=== PATIENT | female | born 1975 | race Caucasian/White ===

== ENCOUNTER 2018-03-31 11:40 | Observation (INO) | payer OTHER ==
[2018-03-31] MEDS ORDERED: ACETAMINOPHEN 500 MG TAB PO ONE (11:51)
[2018-03-31] MEDS ORDERED: ceFAZolin 2 GM/DEXTROSE 100 ML IV ONE (11:51)
[2018-03-31] MEDS ORDERED: GABAPENTIN 300 MG CAP PO ONE (11:51)
[2018-03-31] MEDS ORDERED: PHENAZOPYRIDINE HCL 200 MG TAB PO ONE (11:51)
[2018-03-31] MEDS ORDERED: LIDOCAINE 1% 2 ML INJ ID PRN (11:52)
[2018-03-31] MEDS ORDERED: LR 1,000 ML IV ONE (11:52)
[2018-03-31] MEDS ORDERED: SCOPOLAMINE HYDROBROMIDE 1 MG/3 DAYS PATCH TD ONE (12:54)
[2018-03-31] MEDS ORDERED: MIDAZOLAM 2 MG/2 ML VIAL IVP ONE (12:54)
--- NOTE | 2018-03-31 13:15 | PDHPUP ---
History & Physical Update H&P update statement: This history and physical update is based on an assessment of the patient which was completed after admission or registration (within 24 hours), but prior to the surgery/procedure. H&P update: H&P reviewed & patient examined, no change in patient's condition since H&P completed
[2018-03-31] MEDS ORDERED: BUPIVACAINE/EPI 0.5% 30 ML SDV ONE (13:36)
[2018-03-31] MEDS ORDERED: PROPOFOL 200 MG/20 ML VIAL ONE (13:45)
[2018-03-31] MEDS ORDERED: fentaNYL 100 MCG/2 ML INJ ONE ×2 (13:45→16:15)
[2018-03-31] MEDS ORDERED: DEXAMETHASONE 4 MG/ML VIAL ONE (13:46)
[2018-03-31] MEDS ORDERED: ROCURONIUM 50 MG/5 ML VIAL ONE (13:46)
[2018-03-31] MEDS ORDERED: METOCLOPRAMIDE 10 MG/2 ML VIAL ONE (13:47)
--- NOTE | 2018-03-31 13:50 | PDANEPAE ---
ANE Past Medical History - Cardiovascular History Hx Hypertension: No Hx Arrhythmias: No Hx Chest Pain: No Hx Coronary Artery / Peripheral Vascular Disease: No Hx CHF / Valvular Disease: No Hx Palpitations: No - Pulmonary History Hx COPD: No Hx Asthma/Reactive Airway Disease: Yes Hx Recent Upper Respiratory Infection: No Hx Oxygen in Use at Home: No Hx Sleep Apnea: No Sleep Apnea Screening Result - Last Documented: Negative Pulmonary History Comment: enviromental allergens triggers asthma - Neurologic History Hx Cerebrovascular Accident: No Hx Seizures: No Hx Dementia: No - Endocrine History Hx Diabetes: No - Renal History Hx Renal Disorders: No - Liver History Hx Hepatic Disorders: No - Neurological & Psychiatric Hx Hx Neurological and Psychiatric Disorders: Yes Neurological / Psychiatric History Comment: depression/anxiety - Cancer History Hx Cancer: No - Congenital Disorder History Hx Congenital Disorders: Yes Congenital History Comment: anemia - GI History Hx Gastrointestinal Disorders: Yes Gastrointestinal History Comment: acid reflux. dairy/gluten causes bloating, gas cramping and abd pain - Other Health History Other Health History: ? anemia. endometiosis - Chronic Pain History Chronic Pain: Yes (pelvic, lower back) - Surgical History Prior Surgeries: 2018 lap ablation. cholecycectomy ANE Review of Systems Review of Systems: - Exercise capacity METS (RN): 4 METS ANE Patient History - Allergies Allergies/Adverse Reactions: gluten Allergy (Verified 03/31/18 12:26) Other-Enter Comments Milk Containing Products [dairy] Allergy (Verified 03/31/18 12:26) Other-Enter Comments NSAIDS (Non-Steroidal Anti-Inflamma Allergy (Verified 03/31/18 12:26) Hives Penicillins Allergy (Verified 03/31/18 12:26) Itching - Home Medications Home Medications: Cyclobenzaprine 03/24/18 [Last Taken 03/28/18] Naproxen 03/24/18 [Last Taken 03/17/18] Bcp 03/31/18 [Last Taken 03/30/18] - NPO status NPO Since - Liquids (Date): 03/31/18 NPO Since - Liquids (Time): 11:15 NPO Since - Solids (Date): 03/31/18 NPO Since - Solids (Time): 05:45 - Smoking Hx Smoking Status: Former smoker - Family Anes Hx Family Hx Anesthesia Complications: mom has similar issues ANE Labs/Vital Signs - Vital Signs Blood Pressure: 123/70 Heart Rate: 82 Respiratory Rate: 16 O2 Sat (%): 97 Height: 177.8 cm Weight: 95.254 kg ANE Physical Exam - Airway Neck exam: FROM Mallampati Score: Class 2 Mouth exam: normal dental/mouth exam - Pulmonary Pulmonary: clear to auscultation - Cardiovascular Cardiovascular: regular rate and rhythym - ASA Status ASA Status: II ANE Anesthesia Plan Anesthesia Plan: general endotracheal anesthesia
[2018-03-31] MEDS ORDERED: HYDROmorphONE/DILAUDID 2 MG/ML INJ ONE ×2 (14:20→16:27)
[2018-03-31] MEDS ORDERED: ONDANSETRON 4 MG/2 ML VIAL ONE (15:21)
[2018-03-31] MEDS ORDERED: METOCLOPRAMIDE 10 MG/2 ML VIAL IVP PRN (15:24)
[2018-03-31] MEDS ORDERED: DEXAMETHASONE 4 MG/ML VIAL IVP PRN (15:24)
[2018-03-31] MEDS ORDERED: LR 500 ML IV PRN (15:24)
[2018-03-31] MEDS ORDERED: MEPERIDINE 25 MG/0.5 ML AMP IVP PRN (15:24)
[2018-03-31] MEDS ORDERED: HYDROmorphONE/DILAUDID 2 MG/ML INJ IVP PRN (15:24)
[2018-03-31] MEDS ORDERED: oxyCODONE IR 5 MG TAB PO PRN (15:24)
[2018-03-31] MEDS ORDERED: NALOXONE HCL 0.4 MG/ML INJ IVP PRN (15:24)
[2018-03-31] MEDS ORDERED: ONDANSETRON 4 MG/2 ML VIAL IVP PRN ×2 (15:24→15:38)
[2018-03-31] MEDS ORDERED: HYDROCODONE/APAP 5/325 TAB PO PRN (15:24)
[2018-03-31] MEDS ORDERED: PROMETHAZINE HCL 25 MG/ML INJ IVP PRN ×2 (15:24→15:38)
[2018-03-31] MEDS ORDERED: ALBUTEROL 3 ML DEYVIAL IH PRN (15:24)
--- NOTE | 2018-03-31 15:25 | POSTANESTH ---
Post Anesthetic Evaluation Cardiovascular Status: Normal, Stable Respiratory Status: Normal, Stable Level of Consciousness/Mental Status: Can Participate in Eval Pain Control: Adequate, Prn Tx Ordered Nausea/Vomiting Control: Adequate, Prn Tx Ordered Complications Possibly Related to Anesthesia: None Noted
[2018-03-31] MEDS ORDERED: OXYCODONE/APAP 5/325 TAB PO PRN (15:38)
[2018-03-31] MEDS ORDERED: HYDROmorphONE/DILAUDID 1 MG/ML INJ IVP PRN (15:38)
[2018-03-31] MEDS ORDERED: TEMAZEPAM 15 MG CAP PO PRN (15:38)
--- NOTE | 2018-03-31 15:38 | POSTOPPROG ---
Post Op Note Date of Operation: 03/31/18 Surgeon: Dwayne Piña Dock Loader: Tracy Romero Anesthesiologist: Luz Elena Anesthesia: GET(General Endotracheal) Pre-op Diagnosis: Endometriosis, pelvic pain Post-op Diagnosis: Same Procedure: Robotic hyst/RSO, excise endo, bilat ureterolysis Findings: Endo Inf/Abcess present in the surg proc area at time of surgery?: No EBL: Minimal Complications: None
[2018-03-31] MEDS ORDERED: LR 1,000 ML IV SCH (16:00)
[2018-03-31] MEDS ORDERED: DIAZEPAM 5 MG/ML 1 ML SYR ONE (16:06)
[2018-03-31] MEDS: DIAZEPAM 5 MG/ML 1 ML SYR IVP PRN ×2 (16:07→16:41)
[2018-03-31] MEDS: fentaNYL 100 MCG/2 ML INJ IVP PRN ×3 (16:15→16:34)
--- NOTE | 2018-03-31 16:39 | GOP ---
DATE OF OPERATION: 03/31/2018 SURGEON: Dwayne Piña MD RESEARCH SOFTWARE ENGINEER: Tracy Romero CFA. ANESTHESIA: General. PREOPERATIVE DIAGNOSIS: 1. Dysmenorrhea. 2. Menorrhagia. 3. Endometriosis. 4. Uterine prolapse. 5. Midcycle pain. POSTOPERATIVE DIAGNOSIS: 1. Dysmenorrhea. 2. Menorrhagia. 3. Endometriosis. 4. Uterine prolapse. 5. Midcycle pain. PROCEDURE PERFORMED: 1. Robotic-assisted total laparoscopic hysterectomy, bilateral salpingectomy, right oophorectomy. 2. Bilateral ureterolysis. 3. Excision of endometriosis in the anterior and posterior cul-de-sac, bilateral pelvic side rhoades. 4. Uterosacral ligament colpopexy. 5. Left ovariopexy. FINDINGS: SPECIMENS: Uterus, tubes, right ovary, and pelvic peritoneum with endometriosis. ESTIMATED BLOOD LOSS: Minimal. DESCRIPTION OF PROCEDURE: The patient was taken to the operating room where she was identified. General anesthesia was administered and found to be adequate. She was placed in the lithotomy position and prepared and draped in normal sterile fashion. A [employer] uterine manipulator was placed into the endometrial cavity and sutured to the cervix. A Davies catheter was placed. A 1 cm infraumbilical incision was made with a scalpel. The Veress needle with the CO2 gas flowing was advanced into the peritoneal cavity. The abdomen was then insufflated with carbon dioxide gas. The 12 mm trocar, followed by the laparoscope were then inserted. The upper abdomen was unremarkable. There was no endometriosis seen on either diaphragm, liver, stomach, gallbladder, or upper abdominal bowel. Two lateral ports placed on the right and 1 on the left under direct visualization. She was then placed in Trendelenburg position and the da Marcelino robot docked on the left side. The instruments were then brought into the abdominal cavity under direct visualization. She had endometriosis in both the anterior and posterior cul-de-sac, bilateral pelvic sidewall, as well the posterior aspect of the uterus, and the right ovary. As a result, decision was made to perform a hysterectomy with right oophorectomy. The left fallopian tube was , along the mesosalpinx. The utero-ovarian ligament, followed by the round ligament were then cauterized and transected. The anterior leaf of the broad ligament was then incised over the left uterine vessels and across the cervix. The bladder was gently dissected off the cervix and upper vagina. The left uterine vasculature was then cauterized and transected. The right round ligament was then divided. The anterior leaf of the broad ligament was incised toward the bifurcation in the right common iliac vessels. A window was created posteriorly anterior to the right ureter to skeletonize the infundibulopelvic vessels. They were then cauterized and transected. The right uterine vasculature was then ligated. Uterus was then anteverted. The posterior cul-de-sac peritoneum from the distal rectum up to the cervix and laterally to the uterosacral ligaments were then excised. The anterior cul-de-sac peritoneum was then excised. A bilateral ureterolysis was required to remove the endometriosis overlying both ureters. The peritoneum over the pelvic brims was excised. The ureters were gently dissected free and lateralized off the overlying peritoneum and endometriosis from the pelvic brim all the way down to the bladder. Once this was accomplished, the entire pelvic sidewall peritoneum was completely excised. A circumferential colpotomy incision was then made with the hot meron. The specimens were removed through the vagina. The vaginal cuff was closed with a running suture of 0 V-Loc 180. A bilateral uterosacral ligament colpopexy was performed by attaching the lateral aspects of the vaginal cuff to the ipsilateral uterosacral ligaments near the coccygeal-sacrospinous ligament complexes. The pelvis was irrigated with sterile saline. Hemostasis was present. A left ovariopexy was then performed by attaching the left ovary to the ipsilateral round ligament near the internal inguinal ring with 3-0 Vicryl Rapide suture. The robot was then undocked. The fascia was closed with 0 Vicryl, skin with 4- 0 Monocryl. Anesthesia was reversed, and patient taken the PACU awake, in stable condition. COMPLICATION: None. DISPOSITION: Patient stable to PACU. /[id number]/MODL MTDD
[2018-03-31] MEDS: SIMETHICONE 80 MG TAB CHEW PO SCH ×2 (17:45→20:48)
[2018-03-31] MEDS: KETOROLAC 30 MG/1 ML SDV IVP SCH (18:29)
[2018-03-31] MEDS: GABAPENTIN 300 MG CAP PO SCH ×2 (19:10→21:48)
[2018-03-31] MEDS: DOCUSATE SODIUM 100 MG CAP PO SCH (20:48)
[2018-04-01] MEDS: KETOROLAC 30 MG/1 ML SDV IVP SCH ×2 (00:45→06:03)
[2018-04-01] MEDS: HYDROCODONE/APAP 5/325 TAB PO PRN ×4 (01:16→10:04)
[2018-04-01 07:06] LABS: PLATELET COUNT 263 10^3/uL (150-400)
[2018-04-01 09:15] VITALS: BP 99/65
[2018-04-01] MEDS: GABAPENTIN 300 MG CAP PO SCH (09:52)
[2018-04-01] MEDS: DOCUSATE SODIUM 100 MG CAP PO SCH (09:52)
[2018-04-01] MEDS: SIMETHICONE 80 MG TAB CHEW PO SCH (09:52)
--- NOTE | 2018-04-01 10:24 | GDS ---
DISCHARGE DIAGNOSES: 1. Endometriosis. 2. Pelvic pain. PROCEDURES: 1. Robotic-assisted total laparoscopic hysterectomy, bilateral salpingectomy, right oophorectomy. 2. Excision of endometriosis in the anterior and posterior cul-de-sac and bilateral pelvic sidewalls . 3. Bilateral ureterolysis. 4. Uterosacral ligament colpopexy. 5. Left ovarian pexy. HISTORY: The patient is a 43-year-old female with a long history of pelvic pain from endometriosis. She was taken to the operating room on 03/31/2018, where she underwent the above-mentioned procedure s without complications. Her postoperative course was uneventful. The morning after surgery she was ambulating, voiding, and tolerating a general diet. She was afebrile with stable vital signs. Her hemoglobin was stable. He r abdomen was flat and soft. Her incisions were clean, dry, and intact. She was moving without diff iculty. She was discharged home on postoperative day #1 in good condition. Medications included Nor co for pain. She is to follow up in the office 2 weeks after discharge. /[id number]/MODL
== END 2018-04-01 12:05 | disposition home or self-care (01) ==
LOC: FSGY 11:40 → F3E 15:38 → FOB 17:32
PROVIDERS: ADMIT Obstetrics & Gynecology; ATTEND Obstetrics & Gynecology
PROC: 0TB64ZZ Excision of Right Ureter, Percutaneous Endoscopic Approach (ICD-10-PCS; principal; 2018-03-31 14:00)
PROC: 0UTC4ZZ Resection of Cervix, Percutaneous Endoscopic Approach (ICD-10-PCS; principal; 2018-03-31 14:00)
PROC: 0UT04ZZ Resection of Right Ovary, Percutaneous Endoscopic Approach (ICD-10-PCS; principal; 2018-03-31 14:00)
PROC: 0UT94ZZ Resection of Uterus, Percutaneous Endoscopic Approach (ICD-10-PCS; principal; 2018-03-31 14:00)
PROC: 0DBW4ZZ Excision of Peritoneum, Percutaneous Endoscopic Approach (ICD-10-PCS; principal; 2018-03-31 14:00)
PROC: 0TB74ZZ Excision of Left Ureter, Percutaneous Endoscopic Approach (ICD-10-PCS; principal; 2018-03-31 14:00)
PROC: 0UT74ZZ Resection of Bilateral Fallopian Tubes, Percutaneous Endoscopic Approach (ICD-10-PCS; principal; 2018-03-31 14:00)
PROC: 0UBF4ZZ Excision of Cul-de-sac, Percutaneous Endoscopic Approach (ICD-10-PCS; principal; 2018-03-31 14:00)
DX: N80.3 Endometriosis of pelvic peritoneum (principal); N80.0 Endometriosis of uterus; N80.1 Endometriosis of ovary; J45.909 Unspecified asthma, uncomplicated
CPT/HCPCS: 58571; 58662; G0378; S2900; J0690; J1100; J1170; J2250; J2405; J2550; J2704; J2765; J3010; J3360